=== PATIENT | female | born 1970 | race Caucasian/White ===

== ENCOUNTER 2017-06-06 09:11 | Emergency (ER) | payer BC ==
[2017-06-06] MEDS ORDERED: Aspirin Low Dose CHEW TAB* 81 MG PO ONE (09:34)
--- NOTE | 2017-06-06 10:05 | RAD ---
Indication: Chest pain. Single frontal view of the chest performed at 0950 hours was reviewed. No prior study is available for comparison. No mediastinal shift is noted. Heart is of normal size and configuration. Lung wallace appear clear. IMPRESSION: NO ACTIVE CARDIOPULMONARY DISEASE IS NOTED.
[2017-06-06 10:20] LABS: Hematocrit 42 % (35-47); Mean Corpuscular HGB Conc 33 g/dl (31-36); Mean Corpuscular Hemoglobin 31 pg (27-31); Mean Corpuscular Volume 94 fL (80-97); Mean Platelet Volume 9 um3 (7.4-10.4); Red Blood Count 4.47 10^6/ul (4.0-5.4); Red Cell Distribution Width 13 % (10.5-15); White Blood Count 5.6 10^3/ul (3.5-10.8)
[2017-06-06] MEDS ORDERED: Ketorolac INJ* 30 MG/ML 1 ML VIAL IV PUSH ONE (10:21)
[2017-06-06 10:37] LABS: Albumin 4.4 g/dL (3.2-5.2); BUN/Creatinine Ratio 16.3 (8-20); Calcium 9.2 mg/dL (8.6-10.3); EGFR African American 99.3 (>60); EGFR Non-African American 77.2 (>60); Globulin 3.1 g/dL (2-4); Magnesium 2.2 mg/dL (1.9-2.7); Potassium 3.7 mmol/L (3.5-5.0); Total Bilirubin 0.7 mg/dL (0.2-1.0); Total Protein 7.5 g/dL (6.4-8.9)
[2017-06-06 13:10] VITALS: BP 112/69
--- NOTE | 2017-06-06 17:03 | ED ---
Eamon Cole Auryana, scribed for Julian Mehta MD on 06/06/17 at 0954 . HPI Chest Pain - HPI Summary HPI Summary: 46 year old female presents to the ED with chest pain starting last night. Patient reports that she is unsure if the chest pain woke her from sleep but reports that she had difficulty sleeping throughout the night. She characterizes the chest pain as heaviness which is located in the right upper side of the chest and radiates to the back. She also had right arm parasthesia, diaphoresis (last night - now resolved) and nausea but denies any SOB. Patient also reports being tired over the last few weeks. She denies any SOB, abdominal pain, or any calf pain. Patient denies any recent travel. LNMP- 3 weeks ago. She does report prior episodes but last night was much more intense than any previous episodes. expressed wish for Lyme disease titer since [place] and all of her children have been diagnosed with Lyme disease s/p multiple tick bites. She denies any PMHx - no history of cholecystectomy. FHx is significant for aneurysms - reports tested for them every [address] Raya - reports normal last exam. SHx is significant for weekly alcohol use but denies any tobacco use. - History of Current Complaint Chief Complaint: EDChestPainROMI Time Seen by Provider: 06/06/17 09:34 Hx Obtained From: Patient Onset/Duration: Started Hours Ago - LAST NIGHT, Still Present Timing: Constant Initial Severity: Moderate Current Severity: Mild Pain Intensity: 2 Pain Scale Used: 0-10 Numeric Chest Pain Location: Discrete at:, Right Anterior, Right Lateral Chest Pain Radiates: Yes Chest Pain Radiates To:: Back Character: Heaviness Associated Signs and Symptoms: Positive: Chest Pain, Diaphoresis, Nausea, Other : - right arm parasthesia, increase fatigue over the last few weeks. Negative: Shortness of Breath, Abdominal Pain, Calf Pain/Swelling Related History: Similar Episode/Dx as: - Allergy/Home Medications Allergies/Adverse Reactions: Allergies Allergy/AdvReac Type Severity Reaction Status Date / Time No Known Allergies Allergy Verified 06/06/17 09:16 PMH/Surg Hx/FS Hx/Imm Hx Previously Healthy: Yes Infectious Disease History: No Infectious Disease History: Denies: Traveled Outside the [place] in Last 30 Days - Family History Known Family History: Positive: Other - aneurysms - Social History Occupation: Employed Full-time Lives: With Family Alcohol Use: Weekly Substance Use Type: Reports: None Smoking Status (MU): Never Smoked Tobacco Review of Systems Positive: Skin Diaphoresis - now resolved, Other - reports increased tiredness over the last few weeks . Negative: Fever Eyes: Negative ENT: Negative Positive: Chest Pain - that radiates to her back Respiratory: Negative Negative: Shortness Of Breath Positive: Nausea. Negative: Abdominal Pain Genitourinary: Negative Musculoskeletal: Negative Positive: Other - no calf pain Skin: Negative Positive: Paresthesia - right arm Psychological: Normal All Other Systems Reviewed And Are Negative: Yes Physical Exam - Summary Physical Exam Summary: VITAL SIGNS: Reviewed. GENERAL: Patient is a well-developed and nourished female who is lying comfortable in the stretcher. Patient is not in any acute respiratory distress. HEAD AND FACE: No signs of trauma. No ecchymosis, hematomas or skull depressions. No sinus tenderness. EYES: PERRLA, EOMI x 2, No injected conjunctiva, no nystagmus. EARS: Hearing grossly intact. Ear canals and tympanic membranes are within normal limits. MOUTH: Oropharynx within normal limits. NECK: Supple, trachea is midline, no adenopathy, no JVD, no carotid bruit, no c- spine tenderness, neck with full ROM. CHEST: Symmetric, no tenderness at palpation LUNGS: Clear to auscultation bilaterally. No wheezing or crackles. CVS: Regular rate and rhythm, S1 and S2 present, no murmurs or gallops appreciated. ABDOMEN: Soft, non-tender. No signs of distention. No rebound no guarding, and no masses palpated. Bowel sounds are normal. EXTREMITIES: FROM in all major joints, no edema, no cyanosis or clubbing. NEURO: Alert and oriented x 3. No acute neurological deficits. Speech is normal and follows commands. SKIN: Dry and warm. Triage Information Reviewed: Yes Vital Signs On Initial Exam: Initial Vitals Temp Pulse Resp BP Pulse Ox 98.6 F 83 18 169/84 99 06/06/17 09:14 06/06/17 09:14 06/06/17 09:14 06/06/17 09:14 06/06/17 09:14 Vital Signs Reviewed: Yes - Jeevan Coma Scale Coma Scale Total: 15 Diagnostics - Vital Signs Vital Signs Temp Pulse Resp BP Pulse Ox 06/06/17 09:14 98.6 F 83 18 169/84 99 - Laboratory Lab Results: Lab Results 06/06/17 06/06/17 06/06/17 Range/Units 10:07 10:07 10:07 WBC 5.6 (3.5-10.8) 10^3/ul RBC 4.47 (4.0-5.4) 10^6/ul Hgb 14.0 (12.0-16.0) g/dl Hct 42 (35-47) % MCV 94 (80-97) fL MCH 31 (27-31) pg MCHC 33 (31-36) g/dl RDW 13 (10.5-15) % Plt Count 234 (150-450) 10^3/ul MPV 9 (7.4-10.4) um3 Neut % (Auto) 70.7 (38-83) % Lymph % (Auto) 16.1 L (25-47) % [place] % (Auto) 10.5 H (1-9) % Eos % (Auto) 2.0 (0-6) % Baso % (Auto) 0.7 (0-2) % Absolute Neuts (auto) 3.9 (1.5-7.7) 10^3/ul Absolute Lymphs (auto) 0.9 L (1.0-4.8) 10^3/ul Absolute Monos (auto) 0.6 (0-0.8) 10^3/ul Absolute Eos (auto) 0.1 (0-0.6) 10^3/ul Absolute Basos (auto) 0 (0-0.2) 10^3/ul Absolute Nucleated RBC 0 10^3/ul Nucleated RBC % 0 Sodium 134 (133-145) mmol/L Potassium 3.7 (3.5-5.0) mmol/L Chloride 103 (101-111) mmol/L Carbon Dioxide 23 (22-32) mmol/L Anion Gap 8 (2-11) mmol/L BUN 13 (6-24) mg/dL Creatinine 0.80 (0.51-0.95) mg/dL Est GFR ( Amer) 99.3 (>60) Est GFR (Non-Af Amer) 77.2 (>60) BUN/Creatinine Ratio 16.3 (8-20) Glucose 98 (70-100) mg/dL Lactic Acid 0.6 (0.5-2.0) mmol/L Calcium 9.2 (8.6-10.3) mg/dL Magnesium 2.2 (1.9-2.7) mg/dL Total Bilirubin 0.70 (0.2-1.0) mg/dL AST 14 (13-39) U/L ALT 16 (7-52) U/L Alkaline Phosphatase 71 (34-104) U/L Total Creatine Kinase 33 (10-223) U/L CK-MB (CK-2) 0.6 (0.6-6.3) ng/mL Troponin I 0.00 (<0.04) ng/mL B-Natriuretic Peptide ( - 100) pg/mL Total Protein 7.5 (6.4-8.9) g/dL Albumin 4.4 (3.2-5.2) g/dL Globulin 3.1 (2-4) g/dL Albumin/Globulin Ratio 1.4 (1-3) 06/06/17// Range/Units 10:07 12:17 WBC (3.5-10.8) 10^3/ul RBC (4.0-5.4) 10^6/ul Hgb (12.0-16.0) g/dl Hct (35-47) % MCV (80-97) fL MCH (27-31) pg MCHC (31-36) g/dl RDW (10.5-15) % Plt Count (150-450) 10^3/ul MPV (7.4-10.4) um3 Neut % (Auto) (38-83) % Lymph % (Auto) (25-47) % [place] % (Auto) (1-9) % Eos % (Auto) (0-6) % Baso % (Auto) (0-2) % Absolute Neuts (auto) (1.5-7.7) 10^3/ul Absolute Lymphs (auto) (1.0-4.8) 10^3/ul Absolute Monos (auto) (0-0.8) 10^3/ul Absolute Eos (auto) (0-0.6) 10^3/ul Absolute Basos (auto) (0-0.2) 10^3/ul Absolute Nucleated RBC 10^3/ul Nucleated RBC % Sodium (133-145) mmol/L Potassium (3.5-5.0) mmol/L Chloride (101-111) mmol/L Carbon Dioxide (22-32) mmol/L Anion Gap (2-11) mmol/L BUN (6-24) mg/dL Creatinine (0.51-0.95) mg/dL Est GFR ( Amer) (>60) Est GFR (Non-Af Amer) (>60) BUN/Creatinine Ratio (8-20) Glucose (70-100) mg/dL Lactic Acid (0.5-2.0) mmol/L Calcium (8.6-10.3) mg/dL Magnesium (1.9-2.7) mg/dL Total Bilirubin (0.2-1.0) mg/dL AST (13-39) U/L ALT (7-52) U/L Alkaline Phosphatase (34-104) U/L Total Creatine Kinase (10-223) U/L CK-MB (CK-2) (0.6-6.3) ng/mL Troponin I 0.00 (<0.04) ng/mL B-Natriuretic Peptide 24 ( - 100) pg/mL Total Protein (6.4-8.9) g/dL Albumin (3.2-5.2) g/dL Globulin (2-4) g/dL Albumin/Globulin Ratio (1-3) Result Diagrams: 06/06/17 10:07 06/06/17 10:07 Lab Statement: Any lab studies that have been ordered have been reviewed, and results considered in the medical decision making process. - Radiology CXR Xray Interpretation: No Acute Changes Radiology Interpretation Completed By: Radiologist - EKG 09:21 EKG Interpretation: sinus rhythm @ 72 bpm, no ST elevation Re-Evaluation - Re-Evaluation First Eval Re-Evaluation Time: 13:01 - discussed labs and discharge Chest Pain Course/Dx - Course Assessment/Plan: 46 year old female presents to the ED with chest pain starting last night. Patient reports that she is unsure if the chest pain woke her from sleep but reports that she had difficulty sleeping throughout the night. She characterizes the chest pain as heaviness which is located in the right upper side of the chest and radiates to the back. She also had right arm paresthesia, diaphoresis (last night - now resolved) and nausea. Patient also reports being tired over the last few weeks. She denies any SOB, abdominal pain, or any calf pain. Patient denies any recent travel. LNMP- 3 weeks ago. She does report prior episodes but last night was much more intense than any previous episodes. expressed wish for Lyme disease titer since [place] the [place] and all of her children have been diagnosed with Lyme disease s/p multiple tick bites. She denies any PMHx - no history of cholecystectomy. FHx is significant for aneurysms - reports tested for them every [address] Raya - reports normal last exam. SHx is significant for weekly alcohol use but denies any tobacco use. CXR - NAD. EKG- sinus rhythm @ 72 bpm, no ST elevation. In the ED course an IV access was obtained. Patient was placed in a cardiac rehab nurse. Patient was started with IV fluids. Labs without significant abnormalities. Troponin #1: 0.00 and Troponin # 2 (4 hours later): 0.00. EKG shows a NSR at 82 BPM w/o ST elevations. CXR impression: No acute pathology. In the ED course she was given TOradol for the pain and her symptoms improved. She is feeling better therefore she will be discharged home with F/U of PMD. I have low suspicion for ACS with negative troponins and normal ECG. No suspicion for PE since she is not tachycardic and she is not hypoxic. I discussed all the findings and test results with the patient. Patient was instructed to return to the emergency room immediately if any of the symptoms return or worsens. Plan of care was discussed with the patient and understands and agrees. All questions were answered at patient satisfaction. There were no further complaints or concerns. Lung exam before discharge: CTA B /L. Good air exchange. No wheezing or crackles heard. CVS: S1 and S2 present. No murmurs appreciated. Patient is alert and oriented x 3. Patient is hemodynamically stable. Patient will be discharged home with follow up PCP in the next 2-3 days - Chest Pain Differential Diagnosis/HQI/PQRI: Acute MS, ACS, Angina, CHF, Chest Wall, GI Disease, Lower Respiratory Infection - Diagnoses Provider Diagnoses: Chest pain Discharge - Discharge Plan Condition: Stable Disposition: HOME Patient Education Materials: Chest Pain (ED) Referrals: Petar Raya MD [Primary Care Provider] - 2 Days The documentation as recorded by the Eamon tomlinson Auryana accurately reflects the service I personally performed and the decisions made by Tyson carlos Walter, MD.
== END 2017-06-06 13:33 | disposition home or self-care (01) ==
LOC: ED 09:11
DX: R07.9 Chest pain, unspecified (principal); R11.0 Nausea; R53.83 Other fatigue
CPT/HCPCS: 36415; 71010; 80053; 82550; 82553; 83605; 83735; 83880; 84484; 85025; 86618; 93005; 99283; A9270-GY; J1885